=== PATIENT | female | born 1985 | race Caucasian/White ===

== ENCOUNTER 2016-12-27 13:06 | Emergency (ER) | payer BC ==
[~2016-12-27] VITALS: Ht 162.6 cm; Wt 62.3 kg
[2016-12-27] MEDS ORDERED: CELEXA40 MG PO (13:16)
[2016-12-27] MEDS ORDERED: PROAIR HFA0.09 MG/AC IH (13:16)
[2016-12-27 14:31] VITALS: BP 132/81; PULSE 81
== END 2016-12-27 14:31 | disposition home or self-care (01) ==
LOC: COL.ER 13:06
DX: S50.812A Abrasion of left forearm, initial encounter (principal); S50.811A Abrasion of right forearm, initial encounter; F32.9 Major depressive disorder, single episode, unspecified; F17.210 Nicotine dependence, cigarettes, uncomplicated; W55.59XA Other contact with raccoon, initial encounter

== ENCOUNTER 2017-10-13 18:16 | Emergency (ER) | payer BC ==
[~2017-10-13] VITALS: Ht 162.6 cm; Wt 63.6 kg
[~2017-10-13 18:16] MED LIST: CELEXA40 MG PO; PROAIR HFA0.09 MG/AC IH
[2017-10-13 18:23] VITALS: BP 127/82; TEMP 99.4
[2017-10-13] MEDS ORDERED: NORCO 325 MG-51 TAB PO (18:41)
[2017-10-13] MEDS ORDERED: AMOXICILLIN 8751 TAB PO (18:41)
[2017-10-13 18:52] VITALS: PULSE 80
== END 2017-10-13 18:52 | disposition home or self-care (01) ==
LOC: COL.ER 18:16
DX: K08.89 Other specified disorders of teeth and supporting structures (principal)

== ENCOUNTER → 2018-07-08 | Emergency (ER) | payer BC ==
[~2018-07-08] VITALS: Ht 162.6 cm; Wt 53.2 kg
[~2018-07-08] MED LIST changes: +AMOXICILLIN 8751 TAB PO; +DESYREL 100MG100 MG PO; +NORCO 325 MG-51 TAB PO
[2018-07-08 18:22] VITALS: BP 127/81; PULSE 110; TEMP 98.3
[2018-07-08 19:08] LABS: COLLECTION METHOD CLEAN CATCH
[2018-07-08 19:21] LABS: PH 7 (5-8); SQUAMOUS EPITHELIAL None Seen /hpf; URINE APPEARANCE Clear; URINE BACTERIA None Seen /hpf; URINE BILIRUBIN Negative (NEGATIVE); URINE BLOOD Negative (NEGATIVE); URINE COLOR Colorless; URINE GLUCOSE Negative (NEGATIVE); URINE KETONE Negative (NEGATIVE); URINE LEUKOCYTE ESTERASE Negative (NEGATIVE); URINE NITRATE Negative (NEGATIVE); URINE PROTEIN(semi-quant) Negative (NEGATIVE); URINE RBC 0-2 /hpf; URINE UROBILINOGEN Negative (NEGATIVE)
[2018-07-08 19:28] LABS: TRICYCLIC ANTIDEPRESS URINE NEGATIVE
[2018-07-08 19:28] LABS: BASO % 0.5 % (0.0-2.0); EOS % 0.2 % (0-4.0); HEMATOCRIT 44.6 % (37.0-47.0); HEMOGLOBIN 15.2 g/dl (12.5-16.0); LYMPH # 2.3 (1.2-3.4); LYMPH % 41.3 % (20.0-51.0); MEAN CELL VOLUME 89 fl (80.0-100.0); MEAN CORPUSCULAR HEMOGLOBIN 30 pg (27.0-31.0); MEAN CORPUSCULAR HGB CONC 34 g/dl (33.0-37.0); MEAN PLATELET VOLUME 10.7 fl (7.4-10.4); MONO # 0.3 (0.1-0.6); MONO % 4.8 % (1.7-9.3); PLATELET COUNT 236 K/mm3 (130-400); REDCELL DISTRIBUTION WIDTH-CV 13.1 % (11.5-14.5)
[2018-07-08 19:39] LABS: ACETAMINOPHEN < 10 ug/mL (10-30); ALANINE AMINOTRANSFERASE 9 U/L (9-52); ALBUMIN 4.5 gm/dL (3.5-5.0); ALCOHOL(ethanol),MEDICAL 249 mg/dL; ALKALINE PHOSPHATASE 66 U/L (50-136); ANION GAP 10 mmol/L (7-16); AST,SGOT 27 U/L (15-37); BILIRUBIN,TOTAL 0.4 mg/dL (0.0-1.0); BLOOD UREA NITROGEN 5 mg/dL (7-17); CARBON DIOXIDE 24 mmol/L (22-30); CHLORIDE 106 mmol/L (98-107); CREATININE, serum 0.64 (0.52-1.25); GLUCOSE 86 mg/dL (74-106); SALICYLATE < 1.0 mg/dL; SODIUM 140 mmol/L (137-145); TOTAL PROTEIN 7.7 gm/dL (6.4-8.2)
== END ==
LOC: COL.ER 18:13
PROVIDERS: Emergency Medicine
DX: S61.512A Laceration without foreign body of left wrist, initial encounter (principal); S51.812A Laceration without foreign body of left forearm, initial encounter; F32.9 Major depressive disorder, single episode, unspecified; F10.229 Alcohol dependence with intoxication, unspecified; W25.XXXA Contact with sharp glass, initial encounter; Y90.8 Blood alcohol level of 240 mg/100 ml or more